=== PATIENT | male | born 1960 | race Caucasian/White ===

== ENCOUNTER 2018-11-18 08:54 | Emergency (ER) | payer OTHER ==
[~2018-11-18] VITALS: Ht 177.8 cm; Wt 113.4 kg
--- OUTSIDE RECORDS SUMMARY | 2018-11-18 09:11 | XMS REPORT | Encounter Summary ---
Author Organization Unknown Address [address] [place] [id number] Phone [phone] Reason for Visit Medical Complaint Instructions 1. Influenza due to Influenza A virus rapid flu (A+B) Bromfed DM 2 mg-30 mg-10 mg/5 mL syrup 2. Pain in throat sore throat: care instructions rapid strep group A, throat 3. Headache headache: care instructions Discussion Note Pt is in NAD; Verbalizes understanding of all instructions with no questions at this time. Plan of Care Patient Instructions Take fluticasone over the counter as needed for congestion. Hooper one spray in each nostril twice a day. Take a warm, steamy shower, blow your nose thereafter, and spray in each nostril. Tilt your head up for about 10 seconds and breath through your mouth. Do not sniff or snort the medication in or else the medication will go to your throat and not be absorbed appropriately. Take over the counter Xyzal for like symptoms like runny nose, sneezing and watery eyes. Alternate with Ibuprofen (advil or motrin) and acetaminophen (tylenol) every 4-6 hrs as needed for fever/pain/headache as directed per package insert. Proper hydration and rest. Take children's Bromfed DM for cough as directed. Use over the counter chloraseptic spray and use as per package. Return to school/work of fever free for 24 hrs. In case of emergency of emergency call 911 or go to nearest ER. Reminders Provider Appointments None recorded. Lab Rapid Flu (A+B) 02/22/2017 [facility] Rapid Strep Group a, Throat 02/22/2017 [facility] Referral None recorded. Procedures None recorded. Surgeries None recorded. Imaging None recorded. Medications Name Start Date Bromfed DM 2 mg-30 mg-10 mg/5 mL syrup Take 10 mL every 6 hours by oral route as needed for 6 days. Medications Administered None recorded. Vitals Height Weight BMI Blood Pressure 5 ft 10 in 220 lbs 31.6 kg/m2 128/90 mm[Hg] Lab Results Date Name Specimen Result Interpretation Description Value Range Status Address Rapid Strep Group a, Throat Result negative [facility]: [facility] Swab Location Left and Right tonsillar pillars [facility]: [facility] Rapid Flu (A+B) Influenza a positive [facility]: [facility] Influenza B negative [facility]: [facility] Allergies Code Code System Name Reaction Severity Status Onset NKDA Problems None recorded. Procedures Date Name Performed by 03/20/2013 [facility] Information not available 1960 Hernia Repair W/mesh Information not available Vaccine List None recorded. Social History Smoking Status Never Smoker Past Encounters 02/22/2017 Influenza Due to Influenza a Virus; Pain in Throat; Headache Mari Diane [facility]: [address] [place] [address], Ph. History of Present Illness [id number] Reported By: Patient HPI: Quality: symptoms worse during the day. Duration: 5 days. Severity: subjective temperature. Context: no ill contacts, no tick/insect bites, no recent travel, no new medications. Associated Symptoms: no fever/chills, no muscle aches, no rash, no lethargy, headache, cough, nasal discharge; sore throat, chest congestion, and fever. Modifying Factors nothing gives relief Review of Systems:ROS as noted in the HPI Review of Systems Basic Reported By: Patient Physical Exam Adult Basic, Adult Female Complete, Adult Male Complete Reported By: Patient Constitutional: General Appearance: healthy-appearing, well-nourished, well-developed. Level of Distress: NAD. Ambulation: ambulating normally Psychiatric: Mental Status: active and alert. Orientation: to time, to place, to person Eyes: Lids and Conjunctivae: non-injected, no discharge, no pallor. Pupils: PERRLA. Corneas: grossly intact. EOM: EOMI. Lens: clear. Vision: peripheral vision grossly intact Vjf-Ndgc-Yjicp-Throat: Ears: no lesions on external ear, no outer ear tenderness, EACs clear, TMs clear. Hearing: no hearing loss. Nose: no lesions on external nose, nares patent, no septal deviation, nasal passages clear, no sinus tenderness, nasal discharge--rhinorrhea, post nasal drip. Lips, Teeth, and Gums: no mouth or lip ulcers, no bleeding gums, normal dentition. Oropharynx: moist mucous membranes, no erythema, no exudates, tonsils not enlarged Neck: Neck: supple. Lymph Nodes: no cervical LAD Lungs: Respiratory effort: no dyspnea, no tachypnea, no use of accessory muscles, no intercostal retractions. Auscultation: breath sounds normal, good air movement Cardiovascular: Heart Auscultation: RRR, no murmurs Neurologic: Gait and Station: normal gait, normal station. Cranial Nerves: grossly intact. Sensation: grossly intact. Reflexes: DTRs 2+ bilaterally throughout
--- OUTSIDE RECORDS SUMMARY | 2018-11-18 09:11 | XMS REPORT | Continuity of Care Document ---
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 Phone [employer] Unavailable Unavailable Problems Problem Status Onset Date Classification Date Reported Comments Source Influenza due to Influenza A virus 02/22/2017 Diagnosis 02/22/2017 [facility] Pain in throat 02/22/2017 Diagnosis 02/22/2017 [facility] Headache 02/22/2017 Diagnosis 02/22/2017 [facility] Medications Medication Details Route Status Patient Instructions Ordering Provider Order Date Source Brompheniramine Maleate 0.4 MG/ML / Dextromethorphan Hydrobromide 2 MG/ML / Pseudoephedrine Hydrochloride 6 MG/ML Oral Solution [Bromfed DM] Bromfed DM 2 mg-30 mg-10 mg/5 mL syrup Take 10 mL every 6 hours by oral route as needed for 6 days. Active [facility] Allergies, Adverse Reactions, Alerts No Known Medication Allergies Immunizations No Data Provided for This Section Results Order Name Results Value Reference Range Date Interpretation Comments Source RESULT negative 02/22/2017 [facility] SWAB LOCATION Left and Right tonsillar pillars 02/22/2017 [facility] Influenza A positive 02/22/2017 [facility] Influenza B negative 02/22/2017 [facility] Pathology Reports No Data Provided for This Section Diagnostic Reports No Data Provided for This Section Consultation Notes No Data Provided for This Section Discharge Summaries No Data Provided for This Section History and Physicals No Data Provided for This Section Vital Signs Vital Sign Value Date Comments Source Diastolic (mm Hg) 90 02/22/2017 [facility] Height 70 02/22/2017 [facility] Systolic (mm Hg) 128 02/22/2017 [facility] Weight 220 02/22/2017 [facility] Encounters Location Location Details Encounter Type Encounter Number Reason For Visit Attending Provider ADM Date DC Date Status Source [place] - [facility] - [id number] LeC: [address] [place] [address], Ph. [id number] Mari Diane 02/22/2017 [facility] Procedures Procedure Code Date Perfomer Comments Source Sinus Endoscopy Surgical [address] 03/20/2013 [facility] Hernia Repair W/mesh [id number] 1959 [facility] Assessment and Plan No Data Provided for This Section Plan of Care No Data Provided for This Section Social History Social History Date Source Smoking Status Never Smoker 02/22/2017 [facility] Family History No Data Provided for This Section Advance Directives No Data Provided for This Section Functional Status No Data Provided for This Section
--- OUTSIDE RECORDS SUMMARY | 2018-11-18 09:11 | XMS REPORT | Clinical Summary ---
Author Author [facility] Address Unknown Phone Unavailable Care Team Providers Care Supervisor Steffen House Name Role Phone Asked, No Pcp PCP Unavailable Allergies No Known Allergies Medications No known medications Active Problems Problem Noted Date Combined forms of age-related cataract of left eye 07/16/2018 Hypertensive retinopathy of right eye 07/16/2018 Encounters Care Team Description Date Type Specialty Teodora Lance MD Combined forms of age-related cataract of left eye (Primary Dx) 11/12/2018 Office Visit Ophthalmology Teodora Lance MD 11/07/2018 Telephone Ophthalmology Teodora Lance MD Combined forms of age-related cataract of left eye (Primary Dx) 11/02/2018 Office Visit Ophthalmology Teodora Lance MD 11/02/2018 Telephone Ophthalmology Teodora Lance MD CATARACT REMOVAL BY PHACOEMULSIFICATION WITH INTRAOCULAR LENS IMPLANT, LEFT EYE 11/01/2018 Surgery Plastic Surgery Cayetano Rebolledo MD 11/01/2018 Anesthesia Plastic Surgery Event Teodora Lance MD 11/01/2018 [facility] Plastic Surgery Encounter Center, Ophthalmology - Clinical Care 09/18/2018 Telephone Ophthalmology Teodora Lance MD 09/17/2018 Telephone Ophthalmology Teodora Lance MD 09/13/2018 Telephone Ophthalmology Teodora Lance MD 09/10/2018 Telephone Ophthalmology [place], Ophthalmology - Clinical Care 09/04/2018 Telephone Ophthalmology Teodora Lance MD 09/04/2018 Telephone Ophthalmology Reinaldo Combined forms of age-related cataract of left eye (Primary Dx) 08/31/2018 Office Visit Teodora Schmidt MD 08/21/2018 Telephone Ophthalmology Teodora Lance MD 07/24/2018 Telephone Ophthalmology Hemalatha Ridley MD 07/24/2018 Telephone Ophthalmology Teodora Lance MD Combined forms of age-related cataract of left eye (Primary Dx); Hypertensive retinopathy of right eye 07/16/2018 Office Visit Ophthalmology after 11/17/2017 Social History Date Tobacco Use Types Packs/Day Years Used Never Assessed Sex Assigned at Date Recorded Male 07/15/2018 5:59 PM CDT Industry Job Start Date Occupation Not on file Not on file Not on file Travel End Travel History Travel Start No recent travel history available. Last Filed Vital Signs Reading Time Taken Comments Vital Sign 146/94 11/01/2018 10:42 AM CDT Blood Pressure 69 11/01/2018 10:42 AM CDT Pulse 36.8 C (98.2 F) 11/01/2018 10:42 AM CDT Temperature 21 11/01/2018 10:42 AM CDT Respiratory Rate 100% 11/01/2018 10:42 AM CDT Oxygen Saturation - - Inhaled Oxygen Concentration 110 kg (242 lb) 11/01/2018 9:08 AM CDT Weight 177.8 cm (5' 10") 11/01/2018 9:08 AM CDT Height 34.72 11/01/2018 9:08 AM CDT Body Mass Index Plan of Treatment Care Team Description Date Type Specialty Teodora Lance MD [address] [id number] 12/10/2018 Office Visit Ophthalmology Health Maintenance Due Date Last Done Comments COLONOSCOPY SCREENING 06/24/2009 SHINGLES VACCINES (#1) 06/24/2009 INFLUENZA VACCINE 10/18/2018 Implants Device Identifier Shelf Expiration Date Model / Serial / Lot Implanted Type Area [facility] 04/23/2019 [id number] / [id number] / [id number] Lens Iol Tecnis Toric 1 Piece Left: Eye BAIN [id number] 22.5d Cyl 2.25 - [id number] MEDICAL - [id number] OPTICS Implanted: Qty: 1 on 11/01/2018 by Teodora Lance MD at [facility] Procedures Comments Procedure Name Priority Date/Time Associated Diagnosis PHACOEMULSIFICATION, 11/01/2018 Combined form of CATARACT, WITH IOL 9:58 AM CDT age-related cataract, IMPLANTATION left eye Case Notes TORIC LENS Special Needs TORIC LENS CORNEAL TOPOGRAPHY - OU - Routine 08/31/2018 Combined forms of BOTH EYES 9:35 AM CDT age-related cataract of left eye IOL BIOMETRY - OU - BOTH Routine 08/31/2018 Combined forms of EYES 9:34 AM CDT age-related cataract of left eye after 11/17/2017 Results * Corneal Topography, Galilei - OU (08/31/2018 9:35 AM CDT) Specimen Narrative Performed At IOL choice denoted in patient visit progress note * IOL Master - OU - Both Eyes (08/31/2018 9:34 AM CDT) Axial Length-OD 23.80 Axial Length-OS 23.77 Anterior 3.57 Chamber Depth-OD Anterior 3.84 Chamber Depth-OS White to 12.6 White-OD White to 12.7 White-OS Specimen Narrative Performed At Right Eye Axial length was 23.80. White to white was 12.6. AC Depth was 3.57. Left Eye Axial length was 23.77. White to white was 12.7. AC Depth was 3.84. Notes IOL choice denoted in patient visit progress note IOL CALCULATION ORDER SHEET DATE OF TESTIN08/31/18 DATE OF SURGERY: ODOS RK PRK LASIK SILICONEOIL SCLERAL BUCKLE PKP CONTACT LENSES: DATE LAST WORN:TYPE:RGP: SOFT: DOMINANT EYE: TARGET REFRACTION: ODOS TESTING RESULTS: OD OS K1 K2 AXIS TOTAL CYL K1 K2 AXIS TOTAL CYL AUTO K 42.75 43.25 10 0.50 41.50 43.25 170 1.75 IOLMASTER 42.65 43.17 6 0.52 41.55 43.26 169 1.71 ATLAS GALILEI SimK GALILEI TCP AXIAL LENGTH (in mm) OD OS IOL MASTER 23.80 23.77 SONOMED/ACCUTOME IMMERSION Dr BeaverDr. Dell LANCE___X FINAL IOL LENS CHOICE:OD OS BACKUP LENS :OD OS after 11/17/2017 Insurance Type Payer Benefit Subscriber ID Effective Phone Address Plan / Dates Group PPO AETNA AETNA PPO xxxxxxxxxx [id number] OPEN resent CHOICE Advance Directives For more information, please contact: [phone] Patient Care Aid Explanation Type Date Recorded Advance Directives, 11/01/2018 7:09 AM Living Will and Medical Power of Gis Application Developer
[2018-11-18 09:33] LABS: BASOPHILS % 0.5 % (0.0-1.0); EOSINOPHILS # (AUTO) 0.2 (0.0-0.4); EOSINOPHILS % 2.7 % (0.0-6.0); HEMATOCRIT 42.5 % (38.2-49.6); HEMOGLOBIN 14.2 g/dL (14.0-18.0); LYMPHOCYTES # (AUTO) 1.3 (1.0-3.2); LYMPHOCYTES % 21.9 % (18.0-39.1); MEAN CORPUSCULAR HEMOGLOBIN 31.3 pg (28-32); MEAN CORPUSCULAR HGB CONC 33.4 g/dL (31-35); MEAN CORPUSCULAR VOLUME 93.8 fL (81-99); MONOCYTES # (AUTO) 0.6 (0.2-0.8); MONOCYTES % 10.7 % (4.4-11.3); NEUTROPHILS # (AUTO) 3.8 (2.1-6.9); NEUTROPHILS % 63.5 % (38.7-80.0); PLATELET COUNT 204 x10e3/uL (140-360); RED BLOOD COUNT 4.53 x10e6/uL (4.3-5.7); RED CELL DISTRIBUTION WIDTH 13.2 % (11.7-14.4)
[2018-11-18 09:55] LABS: INR 0.88; PROTHROMBIN TIME 12.4 seconds (11.9-14.5)
--- NOTE | 2018-11-18 09:55 | Diagnostic Imaging Report ---
A single frontal view of the chest. HISTORY: Chest pain COMPARISON: None available. DISCUSSION: Portable technique, limits sensitivity of the exam. Soft tissue attenuation partially limits sensitivity of the exam. Overlying monitoring leads. Tubes/Lines: None Lungs and pleura: The lungs are well inflated. No evidence of a consolidative pneumonia or pulmonary alveolar edema. No definite pleural effusion or pneumothorax is identified. Heart and mediastinum: The cardiomediastinal silhouette appear(s) unremarkable. Bones and soft tissues: Appear unremarkable, given this limited exam. IMPRESSION: No acute radiographic abnormality. Signed by: Dr. Solitario Bateman D.O., M.M.M. on 11/18/2018 9:52 AM
[2018-11-18] MEDS ORDERED: ASPIRIN 325 MG TAB PO ONE (10:00)
[2018-11-18 10:11] LABS: ALBUMIN 4.1 g/dL (3.5-5.0); ALBUMIN/GLOBULIN RATIO 1.2 (0.8-2.0); ANION GAP 13.6 mmol/L (8-16); CREATININE, SERUM 1.36 mg/dL (0.72-1.25); POTASSIUM 3.6 mmol/L (3.5-5.1)
[2018-11-18 10:39] LABS: AMYLASE 45 U/L (25-125); LIPASE 18 U/L (8-78)
[2018-11-18 11:20] LABS: CREATINE KINASE MB 2.2 ng/mL (0-5.0)
[2018-11-18] MEDS ORDERED: ZANTAC150 MG PO (11:40)
== END 2018-11-18 12:03 | disposition home or self-care (01) ==
LOC: ER 09:09
DX: R07.89 Other chest pain (principal); K21.0 Gastro-esophageal reflux disease with esophagitis
CPT/HCPCS: 36415; 71045; 80053; 82150; 82550; 82553; 83690; 84484; 85025; 85379; 85610; 93005; 99284